=== PATIENT | male | born 1955 | race Caucasian/White ===

== ENCOUNTER 2017-01-15 10:03 | Outpatient (CLI) | payer MEDICARE, MEDICAID ==
[~2017-01-15] VITALS: Ht 172.7 cm; Wt 87.7 kg
[~2017-01-15 10:03] MED LIST: ALBU8.5H2 IH; ALBUNEBRX IH; BACL10TA PO; BUDE180A IH; BUPR150T6 PO; CYAN10006 PO; DIAZ10TA3 PO; DIPH-681 PO; GABA800T2 PO; HYDR-3720 PO; HYDR12.56 PO; LAMO2TB. PO; LISI10TA2 PO; MELO-195 PO; NITR0.4T SL; OMEP20TA2 PO; OXYC1TAB12 PO; POTA20TA15 PO; QUET100T PO; TAMS0.4C2 PO; TRAM50TA2 PO; ZOLP10TA5 PO
[2017-01-15] MEDS ORDERED: [UNRECOGNIZED DRUG - CODE] PO (10:32)
[2017-01-15] MEDS ORDERED: BUPR-168 PO (10:32)
[2017-01-15] MEDS ORDERED: GABA800T2 PO (10:32)
[2017-01-15] MEDS ORDERED: TRAZ300T3 PO (10:32)
[2017-01-15] MEDS ORDERED: LORA10TA7 PO (10:32)
[2017-01-15] MEDS ORDERED: FURO40TA4 PO (10:32)
[2017-01-15] MEDS ORDERED: OMEP20CA12 PO (10:32)
[2017-01-15] MEDS ORDERED: ASPI-586 PO (10:32)
[2017-01-15] MEDS ORDERED: ALBU0.63 IH (10:32)
[2017-01-15] MEDS ORDERED: NITR0.4T39 SL (10:32)
[2017-01-15] MEDS ORDERED: CARV3.122 PO (10:32)
[2017-01-15] MEDS ORDERED: GLYC10.7 IH (10:32)
[2017-01-15] MEDS ORDERED: QUET300T44 PO (10:32)
[2017-01-15] MEDS ORDERED: LISI10TA2 PO (10:32)
[2017-01-15] MEDS ORDERED: BACL10TA PO (10:32)
[2017-01-15] MEDS ORDERED: BUDE180A IH (10:32)
[2017-01-15] MEDS ORDERED: HYDR-3820 PO (10:32)
[2017-01-15 10:38] VITALS: BP 121/88
[2017-01-15 11:01] LABS: BASOPHILS # (AUTO) 0.1 10^3/uL (0.0-0.1); BASOPHILS % (AUTO) 1 % (0-10); EOSINOPHILS # (AUTO) 0.1 10^3/uL (0.0-0.3); EOSINOPHILS % (AUTO) 1 % (0-10); LYMPHOCYTES # (AUTO) 2.5 X 10^3 (1.0-4.0); LYMPHOCYTES % (AUTO) 26 % (12-44); MEAN CORPUSCULAR HEMOGLOBIN 27 PG (25-34); MEAN CORPUSCULAR HGB CONC 34 G/DL (32-36); MEAN CORPUSCULAR VOLUME 80 FL (80-99); MONOCYTES # (AUTO) 0.8 X 10^3 (0.0-1.0); MONOCYTES % (AUTO) 8 % (0-12); NEUTROPHILS # (AUTO) 6.1 X 10^3 (1.8-7.8); NEUTROPHILS % (AUTO) 64 % (42-75); PLATELET COUNT 280 10^3/uL (130-400); RED BLOOD COUNT 5.77 10^6/uL (4.35-5.85); RED CELL DISTRIBUTION WIDTH 18.3 % (10.0-14.5); WHITE BLOOD COUNT 9.5 10^3/uL (4.3-11.0)
[2017-01-15 11:17] LABS: ANION GAP 10 MMOL/L (5-14); BLOOD UREA NITROGEN 10 MG/DL (7-18); BUN/CREATININE RATIO 14; CALCIUM 9.7 MG/DL (8.5-10.1); CARBON DIOXIDE 24 MMOL/L (21-32); CHLORIDE 100 MMOL/L (98-107); CREATININE SERUM 0.71 MG/DL (0.60-1.30); GFR ESTIMATED > 60; GLUCOSE 133 MG/DL (70-105); POTASSIUM 3.4 MMOL/L (3.6-5.0); SODIUM 134 MMOL/L (135-145)
== END 2017-01-15 11:22 ==
LOC: PREOP 10:03
PROVIDERS: ATTEND Orthopaedic Surgery Orthopaedic Surgery of the Spine
DX: Z01.812 Encounter for preprocedural laboratory examination (principal); M96.0 Pseudarthrosis after fusion or arthrodesis
CPT/HCPCS: 36415; 80048; 85025; 86850; 86900; 86901; 87081